=== PATIENT | female | born 2000 | race Caucasian/White ===

== ENCOUNTER 2021-02-08 18:00 | Emergency (ER) | payer OTHER ==
[~2021-02-08] VITALS: Ht 167.6 cm; Wt 77.0 kg
[2021-02-08 18:09] VITALS: BP 148/82
== END 2021-02-08 18:50 | disposition left against medical advice (07) ==
LOC: ER 18:00
DX: S60.561A Insect bite (nonvenomous) of right hand, initial encounter (principal); F32.9 Major depressive disorder, single episode, unspecified; W57.XXXA Bitten or stung by nonvenomous insect and other nonvenomous arthropods, initial encounter; Y93.9 Activity, unspecified; Y92.9 Unspecified place or not applicable
CPT/HCPCS: 99283

== ENCOUNTER 2021-03-03 08:19 | Emergency (ER) | payer OTHER ==
[~2021-03-03] VITALS: Ht 162.6 cm; Wt 90.0 kg
[2021-03-03] MEDS ORDERED: IBUPROFEN 600MG TABLET PO ONE (08:45)
[2021-03-03 08:50] VITALS: BP 118/82
[2021-03-03] MEDS ORDERED: HYDROCODONE/ACETAMINOPHEN 5/325MG TABLET PO ONE (09:00)
[2021-03-03] MEDS ORDERED: HYDR-4346 MT (10:57)
[2021-03-03] MEDS ORDERED: IBUP-2029 MT (10:57)
== END 2021-03-03 11:14 | disposition home or self-care (01) ==
LOC: ER 08:19
DX: S62.397A Other fracture of fifth metacarpal bone, left hand, initial encounter for closed fracture (principal); S16.1XXA Strain of muscle, fascia and tendon at neck level, initial encounter; M79.642 Pain in left hand; V49.49XA Driver injured in collision with other motor vehicles in traffic accident, initial encounter; Y93.89 Activity, other specified; Y92.89 Other specified places as the place of occurrence of the external cause; Y99.8 Other external cause status; Z98.890 Other specified postprocedural states
CPT/HCPCS: 29125; 71046; 73110; 73130; 81025; 99284